=== PATIENT | male | born 1970 | race Caucasian/White ===

== ENCOUNTER 2018-12-27 09:10 | Emergency (ER) | payer BC ==
[~2018-12-27] VITALS: Ht 182.9 cm; Wt 83.9 kg
[2018-12-27] MEDS ORDERED: VALSARTAN (09:21)
[2018-12-27] MEDS ORDERED: AMLODIPINE (09:21)
--- NOTE | 2018-12-27 09:25 | NUR ---
PT A/OX4, PRESENTS TO THE ER W/ , C/O N/V SINCE 0600 THIS AM. PT DENIES PAIN AT THIS TIME, AND STATES "I'M JUST DEHYDRATED". NO EPISODE OF EMESIS NOTED IN THE ER AT THIS TIME. VS WNL. PT DENIES PAIN, C/P, SOB, DIZZINESS, HEADACHE.
--- NOTE | 2018-12-27 09:29 | NUR ---
IDALIA AKHTAR AT BEDSIDE FOR MSE.
[2018-12-27] MEDS ORDERED: PANTOPRAZOLE SODIUM 40 MG VIAL ONE (09:30)
[2018-12-27] MEDS ORDERED: PANTOPRAZOLE SODIUM 40 MG VIAL IV ONE (09:30)
[2018-12-27] MEDS ORDERED: ONDANSETRON 4 MG/2 ML VIAL ONE ×2 (09:30→11:12)
[2018-12-27] MEDS ORDERED: ONDANSETRON 4 MG/2 ML VIAL IV ONE ×2 (09:30→11:15)
[2018-12-27] MEDS ORDERED: IV NORMAL SALINE 1000 ML BAG IV ONE ×2 (09:30→10:30)
[2018-12-27 09:41] LABS: BASOPHILS # (AUTO) 0.1 K/uL (0.0-8.0); BASOPHILS % (AUTO) 0.6 % (0.0-2.0); EOSINOPHILS # (AUTO) 0.1 K/uL (0.0-0.7); EOSINOPHILS % (AUTO) 0.6 % (0.0-7.0); HEMATOCRIT 47.6 % (36.7-47.1); HEMOGLOBIN 15.6 g/dL (12.5-16.3); LYMPHOCYTES # (AUTO) 1.9 K/uL (20.0-40.0); LYMPHOCYTES % (AUTO) 14.7 % (20.5-51.5); MEAN CORPUSCULAR HEMOGLOBIN 27.7 uug (23.8-33.4); MEAN CORPUSCULAR HGB CONC 33 g/dL (32.5-36.3); MEAN CORPUSCULAR VOLUME 84.4 fL (73.0-96.2); MONOCYTES # (AUTO) 0.7 K/uL (2.0-10.0); MONOCYTES % (AUTO) 5.6 % (0.0-11.0); NEUTROPHILS # (AUTO) 10.3 K/uL (1.8-8.9); NEUTROPHILS % (AUTO) 78.5 % (38.5-71.5); PLATELET COUNT (AUTO) 324 K/uL (152-348); RED BLOOD CELL COUNT(AUTO) 5.64 MIL/uL (4.06-5.63); WHITE BLOOD COUNT (AUTO) 13.1 K/uL (3.6-10.2)
[2018-12-27 09:53] LABS: BILIRUBIN,DIRECT 0.2 mg/dL (0.0-0.2); TOTAL PROTEIN, SERUM 8.2 g/dL (6.4-8.2)
--- NOTE | 2018-12-27 10:00 | NUR ---
PT NOW C/O LLQ ABD PAIN, ER MD NOTIFIED. AWAITING ORDERS.
[2018-12-27 10:07] LABS: *BILIRUBIN,URIN NEGATIVE (NEGATIVE); *CLARITY,URINE CLEAR (CLEAR); *COLOR,URINE YELLOW (YELLOW); *KETONES,URINE 1+ (NEGATIVE); *UROBILINOGEN,URINE 0.2 E.U./dl (NORMAL); LEUKOCYTE ESTERASE ,URINE NEGATIVE (NEGATIVE); NITRITE, URINE NEGATIVE (NEGATIVE); PH,URINE 8.5 (5.0-8.0); UGLUCOSE NEGATIVE (NEGATIVE)
[2018-12-27 10:08] LABS: *BLOOD, URINE TRACE (NEGATIVE)
[2018-12-27] MEDS ORDERED: METOCLOPRAMIDE HCL 10 MG/2 ML VIAL ONE (10:09)
[2018-12-27] MEDS ORDERED: diphenhydrAMINE 50 MG/1 ML VIAL ONE (10:09)
[2018-12-27] MEDS ORDERED: HYDROMORPHONE 1 MG/1 ML DISP.SYRIN ONE (10:10)
[2018-12-27 10:13] LABS: BACTERIA,URINE FEW /HPF (NONE SEEN); RBC,URINE 0-3 /HPF (0-3); SQUAMOUS EPITHELIAL CELL,UR FEW /HPF (NONE SEEN); WBC,URINE 0-3 /HPF (0-3)
[2018-12-27] MEDS ORDERED: diphenhydrAMINE 50 MG/1 ML VIAL IV ONE (10:15)
[2018-12-27] MEDS ORDERED: METOCLOPRAMIDE HCL 10 MG/2 ML VIAL IV ONE (10:15)
[2018-12-27] MEDS ORDERED: HYDROMORPHONE 1 MG/1 ML DISP.SYRIN IV ONE (10:15)
--- NOTE | 2018-12-27 10:35 | NUR ---
IDALIA AKHTAR AT BEDSIDE FOR PT UPDATE.
--- NOTE | 2018-12-27 10:39 | NUR ---
TILE PICKER AT BEDSIDE.
--- NOTE | 2018-12-27 11:24 | NUR ---
PO CHALLENGE BEGAN.
--- NOTE | 2018-12-27 11:44 | NUR ---
Patient discharged to home in stable conditon. Written and verbal after care instructions given. Patient verbalizes understanding of instructions. ALL BELONGINGS W/ PT. PT SELF-AMBULATED W/O DIFFICUTLY. 20G IV ACCESS IN RAC REMOVED PRIOR TO D/C - INNER CANNULA INTACT. PT WILL BE DRIVEN HOME BY IN PRIVATE VEHICLE.
[2018-12-27 11:51] VITALS: BP 156/88
== END 2018-12-27 11:51 | disposition home or self-care (01) ==
LOC: ER 09:10
DX: R11.2 Nausea with vomiting, unspecified (principal); Z88.5 Allergy status to narcotic agent; Z79.899 Other long term (current) drug therapy
CPT/HCPCS: 36415; 74021; 80048; 80076; 81000; 81001; 83690; 85025; 96361; 96374; 96375; 96376; 99284; C9113; J1170; J1200; J2405 ×2; J2765; A4663; J7030